=== PATIENT | female | born 1995 | race African-American/Black ===

== ENCOUNTER 2022-09-26 18:36 | Emergency (ER) | payer MEDICAID ==
[~2022-09-26] VITALS: Ht 154.9 cm; Wt 68.2 kg
[2022-09-26 18:50] VITALS: BP 137/96
[2022-09-26 19:42] LABS: Eosinophils # (auto) 0.1 10 ^3/uL (0-0.8); Hemoglobin 7.5 g/dL (12.2-16.2); Lymphocytes # (auto) 3.6 10 ^3/uL (0.4-5.4); Nucleated Red Blood Cells % 0.2 %
[2022-09-26 19:44] LABS: Basophils # (auto) 0.2 10 ^3/uL (0-0.2); Basophils % (auto) 1.9 % (0.0-2.0); Eosinophils % (auto) 1.3 % (0.0-7.0); Hematocrit 25.1 % (36.0-46.0); Lymphocytes % (auto) 43.9 % (10.0-50.0); Mean Corpuscular Hemoglobin 18.7 pg (28.0-32.0); Mean Corpuscular Hgb Conc. 29.8 g/dL (32.0-36.0); Mean Corpuscular Volume 62.5 fL (80.0-100.0); Monocytes # (auto) 0.5 10 ^3/uL (0-1.3); Monocytes % (auto) 5.9 % (0.0-12.0); Neutrophils # (auto) 3.9 10 ^3/uL (1.6-8.6); Red Blood Cells 4.01 10^6/uL (4.0-5.20); White Blood Cell 8.2 10^3/uL (4.4-10.8)
[2022-09-26 19:49] LABS: Red Cell Distribution Width 30.9 % (11.8-14.3)
[2022-09-26 20:00] LABS: Albumin 3.9 g/dL (3.4-5.0); Potassium 3.8 mmol/L (3.5-5.1)
[2022-09-26 20:01] LABS: BUN/Creatinine Ratio 12.3
[2022-09-26 20:05] LABS: Bilirubin, Total 0.7 mg/dL (0.2-1.0); Total Protein 7.9 g/dL (6.4-8.2)
[2022-09-26] MEDS ORDERED: FERR-7 PO (21:13)
== END 2022-09-26 22:03 | disposition home or self-care (01) ==
LOC: ER 18:36
DX: R20.2 Paresthesia of skin (principal); D50.9 Iron deficiency anemia, unspecified; Z86.2 Personal history of diseases of the blood and blood-forming organs and certain disorders involving the immune mechanism
CPT/HCPCS: 36415; 80053; 85025

== ENCOUNTER 2025-07-21 17:42 | Emergency (ER) | payer MEDICAID ==
[~2025-07-21] VITALS: Ht 152.4 cm; Wt 87.5 kg
[~2025-07-21 17:42] MED LIST: FERR-7 PO
--- NOTE | 2025-07-21 18:05 | ED.PDOC ---
GI ASSESSMENT HPI Comments This is a 29 year old female presenting to the ED with chief complaint of abdominal pain. Patient reports that she has been experiencing 9/10 lower abdominal cramping for an hour now, feeling slightly better over time. Patient relays that she is currently 15 weeks and follows up with her OBGYN Dr. Valerio. Patient denies any N/V/D, vaginal bleeding, fever, dizziness, or dysuria. Chief Complaint: Abdominal Pain Time Seen by MD: 18:04 Primary Care Provider: [facility] Notes: Nurses Notes, Medications, Allergies Allergies: Coded Allergies: NO KNOWN ALLERGIES (Unverified , 10/11/16) Home Meds Active Scripts Ferrous Sulfate (Iron) 325 Mg Tab, 325 MG PO TID, #90 TAB Prov:MERY HOLDER DO 09/26/22 Information Source: Patient Mode of Arrival: Ambulatory Timing: Days Duration: Since onset Prehospital treatment: None Quality: Cramping Vomitus: None Stool: Normal Severity: Moderate Recent: None Recent Hx of: Current Pain Location: Diffuse Modifying Factors: Nothing Associated sign and symptoms: Abdominal Pain Past Medical History PAST MEDICAL HISTORY: Anemia Surgical History: Denies all surgeries 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 all ELECTRICAL ENGINEERING MANAGER Hx, No Pertinent ELECTRICAL ENGINEERING MANAGER History Family History Family History: No family hx of HTN Social History Smoker: Non-Smoker Alcohol: Denies ETOH Use Drugs: Denies Drug Use Lives In: Home Constitutional: denies: chills, diaphoresis, fatigue, fever, malaise, sweats, weakness, others EENTM: denies: blurred vision, double vision, ear bleeding, ear discharge, ear drainage, ear pain, ear ringing, eye pain, eye redness, hearing loss, mouth pain, mouth swelling, nasal discharge, nose bleeding, nose congestion, nose pain, photophobia, tearing, throat pain, throat swelling, voice changes, others Respiratory: denies: cough, hemoptysis, orthopnea, SOB at rest, shortness of breath, SOB with excertion, stridor, wheezing, others Cardiovascular: denies: chest pain, dizzy spells, diaphoresis, Dyspnea on exertion, edema, irregular heart beat, left arm pain, lightheadedness, pal pitations, PND, syncope, others Gastrointestinal: reports: abdominal pain; denies: abdomen distended, blood streaked bowels, constipated, diarrhea, dysphagia, difficulty swallowing, hematemesis, melena, nausea, poor appetite, poor fluid intake, rectal bleeding, rectal pain, vomiting, others Genitourinary: reports: ; denies: abnormal vagina bleeding, burning, dyspareunia, dysuria, flank pain, frequency, hematuria, incontinence, pain, vagina discharge, urgency, others Neurological: denies: dizziness, fainting, headache, left sided numbness, left sided weakness, numbness, paresthesia, pre-existing deficit, right sided numbness, right sided weakness, seizure, speech problems, tingling, tremors, weakness, others Musculoskeletal: denies: back pain, gout, joint pain, joint swelling, muscle pain, muscle stiffness, neck pain, others Integumetry: denies: bruises, change in color, change in hair/nails, dryness, laceration, lesions, lumps, rash, wounds, others Allergic/Immunocompromised: denies: Difficulty Healing, Frequent Infections, Hives, Itching, others Hematologic/Lymphatic: denies: anemia, blood clots, easy bleeding, easy bruising, swollen glands, others Endocrine: denies: excessive hunger, excessive sweating, excessive thirst, excessive urination, flushing, intolerance to cold, intolerance to heat, unexplained weight gain, unexplained weight loss, others Psychiatric: denies: anxiety, bipolar disorder, depression, hopeless, panic disorder, schizophrenia, sleepless, suicidal, others All Other Systems: Reviewed and Negative Physical Exam General Appearance: No Apparent Distress HEENT: Normal ENT Inspection, Pharynx Normal, TMs Normal Neck: Full Range of Motion, Non-Tender, Normal, Normal Inspection Respiratory: Chest Non-Tender, Lungs Clear, No Accessory Muscle Use, No Respiratory Distress, Normal Breath Sounds Cardiovascular: No Edema, No JVD, No Murmur, No Gallop, Normal Peripheral Pu lses, Regular Rate/Rhythm Breast Exam: Deferred Gastrointestinal: Non Tender, No Pulsatile Mass, Normal Bowel Sounds, Soft, Other (Gravid uterus) Genitalia: Deferred Pelvic: Deferred Rectal: Deferred Extremities: No calf tenderness, Normal capillary refill, Normal inspection, Normal range of motion, Non-tender, No pedal edema Musculoskeletal : Apperance: Normal Neurologic: Alert, aquatics instructor II-XII nml as Tested, No Motor Deficits, Normal Affect, Normal Mood, No Sensory Deficits Cerebellar Function: Normal Reflexes: Normal Skin: Dry, Normal Color, Warm Lymphatic: No Adenopathy Was a procedure done? Was a procedure done?: No GI differential Dx Differential Diagnosis: Gastritis/PUD, Gastroenteritis, Pancreatitis, UTI X-Ray, Labs, Meds, VS Vital Signs Date Time Temp Pulse Resp B/P (MAP) Pulse Ox O2 Delivery O2 Flow Rate FiO2 07/21/25 17:44 97.6 91 18 143/70 100 97.6 Ultrasound of the pelvis shows: IMPRESSION: 1. IUP single live fetus at 15 weeks 4 days AUA corresponding to an APARNA of 09/22/2024. 2. EFW: 130.2 g 3. FHR: 167 bpm The patient will be discharged and will follow up with the primary care doctor The patient will return to the emergency department's condition worsens. The patient understands and agrees with the management. Images Reviewed?: Images reviewed and evaluated by me Time of 1ST Reevaluation: 19:46 Reevaluation 1ST: Unchanged Patient Education/Counseling: Diagnosis, Treatment, Prognosis, Need For Follow Up Family Education/Counseling: No Family Present SEPSIS Sepsis Screen Date sepsis recognized/suspect: Jul 21, 2025 Time Sepsis recognized/suspect: 1745 Recent Procedure: No On Antibiotic Therapy: No Respiratory Rate >20: No Heart Rate >90: Yes Temp<36 C (96.8 F) or >38.3 C: No SBP <90 or MAP <65 mmHG: No New Acute Mental Status Change: No Is the patient on CPAP, BIPAP,: No Physician Orders Ob Ultrasound Comp Gtr 14 Wks (07/21/25 18:09) Urinalysis (07/21/25 18:09) Vital Signs Date Time Temp Pulse Resp B/P (MAP) Pulse Ox O2 Delivery O2 Flow Rate FiO2 07/21/25 17:44 97.6 91 18 143/70 100 97.6 Departure 1 Departure Time of Disposition: 19:46 Impression: Primary Impression: Abdominal pain during Qualified Codes: O26.899 - Other specified related conditions, unspecified trimester; R10.9 - Unspecified abdominal pain Disposition: 01 HOME / SELF CARE / HOMELESS Condition: Fair Discharged With: Self Critical Care Note Critical Care Time?: No Stability Stability form required: No Heart Score Heart Score: Heart Score Response (Comments) Value History N/A 0 EKG N/A 0 Age N/A 0 Risk Factors N/A 0 Troponin N/A 0 Total 0 I personally scribed for RAFIQ POTTER MD ([email or web address]) on 07/21/25 at 18:05. Electronically submitted by Ministerio Salter ([email or web address]). RAFIQ POTTER MD Jul 21, 2025 18:05
--- NOTE | 2025-07-21 19:44 | DVH ---
LIMITED OB ULTRASOUND > 14 WKS: HISTORY: pain TECHNIQUE: Multiple real-time grayscale images of the gravid uterus with duplex Doppler color flow an d M-mode spectral analysis. TRANSDUCER: Transabdominal FINDINGS: IUP single live fetus at 15 weeks 4 days based on composite averages of the BPD, head circumference, abdominal circumference and femur length Estimated weight 130.2 g +/-19.53 grams (5 oz +/-1 oz) heart rate 167 beats per minute MVP; 3.9 cm cm Cervix not visualized Cephalic Presentation Posterior Grade 1 Placenta without previa or abruption. BPD: 2.96 cm consistent with 15 weeks 3 days; 42.3% HC: 11.49 cm 18 weeks 4 days ; 43.7% AC: 9.2 cm consistent with 15 weeks 3 days processing assistant with 51.2% OFD: 0.16 cm consistent with 1 week 1 day FL: 1.98 cm consistent with 15 weeks 6 days which is consistent with 64.9%. CI: 71.17 (70-86) HC/AC: 1.25) 1.06 - 1.36) FL/HC: 17.26 (14.16 - 16.76) IMPRESSION: 1. IUP single live fetus at 15 weeks 4 days AUA corresponding to an APARNA of 09/22/2024. 2. EFW: 130.2 g 3. FHR: 167 bpm
[2025-07-21 20:49] VITALS: BP 143/73; PULSE 90; RESP 18; TEMP 98.5; O2SAT 98
== END 2025-07-21 20:49 | disposition home or self-care (01) ==
LOC: ER 17:42
DX: O26.892 Other specified pregnancy related conditions, second trimester (principal); R10.30 Lower abdominal pain, unspecified; D64.9 Anemia, unspecified; Z3A.15 15 weeks gestation of pregnancy
CPT/HCPCS: 76805